=== PATIENT | male | born 1950 | race Caucasian/White ===

== ENCOUNTER 2023-03-04 19:30 | Inpatient (IN) | payer OTHER ==
[2023-03-04 20:17] VITALS: BMI 28.8
[2023-03-04] MEDS ORDERED: MAGNESIUM HYDROX 2400MG/30ML ORAL SUSPENSION 30 ML CUP PO PRN (22:36)
[2023-03-04] MEDS ORDERED: P-EPHED 60MG/TRIPROLIDI 2.5MG TABLET PO PRN (22:36)
[2023-03-04] MEDS ORDERED: ONDANSETRON *ODT* 4 MG TABLET SL PRN (22:36)
[2023-03-04] MEDS ORDERED: IBUPROFEN 400 MG TABLET (FP) PO PRN (22:36)
[2023-03-04] MEDS ORDERED: LOPERAMIDE HCL 2 MG CAPSULE PO PRN (22:36)
[2023-03-04] MEDS ORDERED: IBUPROFEN 600 MG TABLET (FP) PO PRN (22:36)
[2023-03-04] MEDS ORDERED: MAG HYDROX/AL HYDROX/SIMETH 30 ML UNIT-DOSE CUP PO PRN (22:36)
[2023-03-04] MEDS ORDERED: BENZOCAINE/MENTHOL (CHLORASEPTIC ) LOZENGE MM PRN (22:36)
[2023-03-04] MEDS ORDERED: guaiFENesin 600 MG TABLET.ER (FP) PO PRN (22:36)
[2023-03-04] MEDS ORDERED: POLYETHYLENE GLYCOL (HEALTHYLAX) 3350 17 GM PACKET PO PRN (22:36)
[2023-03-04] MEDS ORDERED: BISMUTH SUBSALICYLATE 524 MG/30 ML PO PRN (22:36)
[2023-03-04] MEDS ORDERED: BENZONATATE 200 MG CAPSULE PO PRN (22:36)
[2023-03-04] MEDS ORDERED: ACETAMINOPHEN 325 MG TABLET (FP) PO PRN (22:36)
[2023-03-05] MEDS ORDERED: LORazepam 0.5 MG TABLET PO PRN (09:37)
[2023-03-05] MEDS ORDERED: FAMOTIDINE 20 MG TABLET PO SCH (10:00)
[2023-03-05] MEDS: PRENATAL VITAMINS W/ FOLIC ACID TABLET (FP) PO SCH (10:18)
[2023-03-05] MEDS: LORazepam 1 MG TABLET PO SCH ×3 (10:19→22:24)
[2023-03-05 10:39] LABS: POTASSIUM 3.9 mmol/L (3.5-5.1)
[2023-03-05] MEDS: PANTOPRAZOLE 20 MG TABLET PO SCH (10:45)
[2023-03-05 10:51] LABS: HEMATOCRIT 43.2 % (35.4-49); HEMOGLOBIN 14.7 GM/dL (11.7-16.9); MCH 35.6 pg (25.7-33.7); MCHC 34.1 g/dl (32.0-35.9); MEAN CELL VOLUME 104.6 fl (80-96); MEAN PLT VOLUME 7.6 fl (7.5-11.1); PLATELET COUNT 219 10^3/uL (134-434); RBC 4.13 M/mm3 (4.00-5.60); RDW 15.1 % (11.9-15.9); WHITE BLOOD COUNT 4.5 K/mm3 (4.0-10.0)
[2023-03-05 11:08] LABS: ALBUMIN 3.5 g/dl (3.4-5.0); BLOOD UREA NITROGEN 12.3 mg/dL (7-18); CALCIUM 9.3 mg/dL (8.5-10.1); CREATININE 1.1 mg/dL (0.55-1.3)
[2023-03-05 11:10] LABS: TOT PROT 7.3 g/dl (6.4-8.2)
[2023-03-05 11:15] LABS: BILIRUBIN,TOTAL 0.9 mg/dL (0.2-1)
[2023-03-05 12:52] LABS: HIV INTERPRETATION NEGATIVE (NEGATIVE)
[2023-03-05] MEDS: MELATONIN 5 MG TABLETS PO SCH (22:24)
[2023-03-05] MEDS: THIAMINE HCL 100 MG TABLET (FP) PO SCH (22:24)
[2023-03-06] MEDS: LORazepam 0.5 MG TABLET PO SCH ×4 (05:37→22:33)
[2023-03-06] MEDS: PRENATAL VITAMINS W/ FOLIC ACID TABLET (FP) PO SCH (10:24)
[2023-03-06] MEDS: PANTOPRAZOLE 20 MG TABLET PO SCH (10:26)
[2023-03-06] MEDS: amLODIPine BESYLATE 2.5 MG TABLET (FP) PO SCH (11:16)
[2023-03-06] MEDS: MELATONIN 5 MG TABLETS PO SCH (22:32)
[2023-03-06] MEDS: THIAMINE HCL 100 MG TABLET (FP) PO SCH (22:32)
[2023-03-07] MEDS ORDERED: LORazepam 0.5 MG TABLET PO ONE (05:00)
[2023-03-07 07:21] VITALS: RESP 16
[2023-03-07] MEDS: amLODIPine BESYLATE 2.5 MG TABLET (FP) PO SCH (09:35)
[2023-03-07] MEDS: PRENATAL VITAMINS W/ FOLIC ACID TABLET (FP) PO SCH (09:35)
[2023-03-07 10:04] VITALS: BP 127/64; PULSE 82; TEMP 97.1
[2023-03-07] MEDS: PANTOPRAZOLE 20 MG TABLET PO SCH (10:29)
== END 2023-03-07 11:45 | disposition home or self-care (01) | DRG 897 ==
LOC: YASAS 19:30 → Y6N 23:22
PROVIDERS: ADMIT Allergy & Immunology; ATTEND Surgery
PROC: HZ2ZZZZ Detoxification Services for Substance Abuse Treatment (ICD-10-PCS; principal; 2023-03-04)
DX: F10.230 Alcohol dependence with withdrawal, uncomplicated (principal); F19.282 Other psychoactive substance dependence with psychoactive substance-induced sleep disorder; F13.10 Sedative, hypnotic or anxiolytic abuse, uncomplicated; G62.9 Polyneuropathy, unspecified; I10 Essential (primary) hypertension; K21.9 Gastro-esophageal reflux disease without esophagitis; Z87.891 Personal history of nicotine dependence
CPT/HCPCS: 0241U-QW; 36415; 80053; 80307; 85027; 86780; 87389; 87811